=== PATIENT | female | born 1995 | race Caucasian/White ===

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

== ENCOUNTER 2021-06-02 16:15 | Emergency (ER) | payer OTHER ==
[~2021-06-02] VITALS: Ht 170.2 cm; Wt 100.1 kg
[~2021-06-02 16:15] MED LIST: IBUP-1114 PO; MAPA500T2 PO; PRENTAB55 PO
[2021-06-02 16:16] VITALS: BP 136/95
[2021-06-02] MEDS ORDERED: LIDOCAINE W/EPINEPHRINE 1% 20ML VIAL SC ONE (17:45)
[2021-06-02] MEDS ORDERED: AUGMENTIN 875 MG TAB PO ONE (17:50)
[2021-06-02] MEDS ORDERED: BOOSTRIX/ADACEL VACCINE (DIPHTH/PERTUSS/ACELL/TETANUS) 0.5ML SYR IM ONE (18:10)
[2021-06-02] MEDS ORDERED: AUGM875T28 PO ×2 (18:48→18:59)
== END 2021-06-02 18:58 | disposition home or self-care (01) ==
LOC: M ED 16:15
DX: S60.414A Abrasion of right ring finger, initial encounter (principal); S51.832A Puncture wound without foreign body of left forearm, initial encounter; W54.0XXA Bitten by dog, initial encounter; Y92.018 Other place in single-family (private) house as the place of occurrence of the external cause